=== PATIENT | female | born 1965 | race Caucasian/White ===

== ENCOUNTER 2020-09-30 16:01 | Emergency (ER) | payer OTHER ==
[~2020-09-30] VITALS: Ht 157.5 cm; Wt 56.7 kg
== END 2020-09-30 21:54 | disposition home or self-care (01) ==
LOC: ER 16:01
DX: N92.0 Excessive and frequent menstruation with regular cycle (principal); D64.89 Other specified anemias; Z03.818 Encounter for observation for suspected exposure to other biological agents ruled out; R53.1 Weakness